=== PATIENT | male | born 1995 | race Hispanic/Latino ===

== ENCOUNTER 2021-12-24 18:49 | Emergency (ER) | payer OTHER ==
[2021-12-24 19:23] LABS: Urine Blood Negative (Negative); Urine Glucose Negative (Negative); Urine Protein Negative (Negative)
[2021-12-24 19:26] LABS: Absolute Lymphocytes (CBC) 1.7 K/uL (0.7-4.9); MCV 91.4 fL (80-100); MPV 9.8 fL (7.6-11.3); RBC Red Blood Cell Count 4.71 M/uL (4.33-5.43)
[2021-12-24 19:35] LABS: Potassium 3.2 mmol/L (3.5-5.1)
[2021-12-24 19:39] LABS: Barbiturates NEGATIVE (NEGATIVE); Benzodiazepines NEGATIVE (NEGATIVE); Cocaine NEGATIVE (NEGATIVE); METHAMPHETAM NEGATIVE (NEGATIVE); Methadone NEGATIVE (NEGATIVE); Opiates NEGATIVE (NEGATIVE); Phencyclidine NEGATIVE (NEGATIVE); THC Cannibis NEGATIVE (NEGATIVE)
[2021-12-24] MEDS ORDERED: NA CHLORIDE 0.9% 1,000 ML ONE (19:43)
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
--- NOTE | 2021-12-24 20:56 | RAD REPORT ---
EXAM DESCRIPTION: RAD - Ankle Right 3 View - 12/24/2021 8:50 pm CLINICAL HISTORY: PAIN COMPARISON: None FINDINGS/IMPRESSION: Nondisplaced fracture of the lateral malleolus below the level of the tibiofibu lar syndesmosis. No malalignment.
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
[2021-12-24] MEDS ORDERED: POTASSIUM 25 MEQ EFFERV TAB ONE (21:51)
[2021-12-24] MEDS ORDERED: HYDROCODONE/APAP 5/325 MG TAB ONE (21:51)
[2021-12-25 00:28] VITALS: TEMP 98.5
[2021-12-25 00:36] VITALS: BP 134/84; O2SAT 100
== END 2021-12-24 21:58 | disposition home or self-care (01) ==
LOC: ER 18:49
PROC: 2W3QX1Z Immobilization of Right Lower Leg using Splint (ICD-10-PCS; principal; 2021-12-24)
DX: S82.61XA Displaced fracture of lateral malleolus of right fibula, initial encounter for closed fracture (principal)
CPT/HCPCS: 96361; 93005; 85025; 80048; 36415; 80320; 81003; 80307; 70450; 72125; 71260; 74177; 71045; 73100; 73590; 73610; 96360; 99284; 29515; Q9967; J7030